=== PATIENT | male | born 1975 | race Two or more races ===

== ENCOUNTER 2021-02-04 05:45 | Day surgery (SDC) | payer OTHER ==
[~2021-02-04 05:45] MED LIST: LEVSIN0.125 MG PO; PROTONIX40 MG PO; ZANTAC300 MG PO
== END 2021-02-04 15:40 | disposition home or self-care (01) ==
LOC: CIR.AMB 05:45
PROVIDERS: ATTEND Urology
DX: N47.6 Balanoposthitis (principal); Z20.822 Contact with and (suspected) exposure to COVID-19

== ENCOUNTER 2025-05-02 06:12 | Emergency (ER) | payer OTHER ==
[~2025-05-02] VITALS: Ht 165.1 cm; Wt 83.5 kg
[2025-05-02 06:22] VITALS: BP 135/78; O2SAT 97
[2025-05-02] MEDS ORDERED: GUAIFEN/DEXTROMETHORPHAN/PE PED LIQUID PO STA (10:00)
[2025-05-02] MEDS ORDERED: GUAIFEN/DEXTROMETHORPHAN/PE 10 ML BLIST.PACK PO STA (10:12)
[2025-05-02 10:19] LABS: BASO % 0.5 % (0.1-1.2); EOS # 0.21 (0.04-0.54); EOS % 2.0 % (0.7-7.0); LYMPH # 2.78 (1.18-3.74); LYMPH % 26.2 % (19.3-53.1); MEAN PLATELET VOLUME 8.80 fl (9.4-12.4); MONO # 0.79 (0.24-0.82); MONO % 7.5 % (4.7-12.5); NEUT # 6.66 (1.56-6.13); NEUT % 62.8 % (34.0-71.1); RED CELL DISTRIBUTION WIDTH 13.5 % (11.6-14.4)
[2025-05-02 10:55] LABS: COVID-19 AG POSITIVE (NEGATIVE)
[2025-05-02] MEDS ORDERED: BENZONATATE100 MG PO (12:11)
== END 2025-05-02 14:10 | disposition home or self-care (01) ==
LOC: ER 06:12
DX: U07.1 COVID-19 (principal); Z88.8 Allergy status to other drugs, medicaments and biological substances; Z87.09 Personal history of other diseases of the respiratory system